=== PATIENT | male | born 1975 | race Caucasian/White ===

== ENCOUNTER 2018-01-14 23:46 | Emergency (ER) | payer MEDICAID, OTHER ==
[~2018-01-14] VITALS: Ht 185.4 cm; Wt 108.9 kg
[2018-01-14 23:57] VITALS: BP 150/100
--- NOTE | 2018-01-15 00:06 | NUR ---
PT AMBULATED TO ER [facility]
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
[2018-01-15] MEDS ORDERED: cefTRIAXone 1,000 MG in LIDOCAINE MPF 1% - **ER/OR** 2.1 ML IM ONE (01:00)
--- NOTE | 2018-01-15 01:33 | NUR ---
IM MEDS GIVEN-NADR AT THIS TIME
--- NOTE | 2018-01-15 01:40 | NUR ---
Patient discharged with v/s stable. Written and verbal after care instructions given and explained. Patient alert, oriented and verbalized understanding of instructions. Ambulatory with steady gait. All questions addressed prior to discharge. ID band removed. Patient advised to follow up with PMD. Rx of IBU, KEFLEX, BACTRIM DS given. Patient educated on indication of medication including possible reaction and side effects. Opportunity to ask questions provided and answered.
[2018-01-15 01:58] VITALS: BP 134/90
== END 2018-01-15 01:40 | disposition home or self-care (01) ==
LOC: MED 23:46
DX: L03.221 Cellulitis of neck (principal); E11.9 Type 2 diabetes mellitus without complications; I10 Essential (primary) hypertension
CPT/HCPCS: 96372; 99283; J0696; J2001